=== PATIENT | female | born 1955 | race Caucasian/White ===

== ENCOUNTER → 2024-09-06 08:54 | Outpatient (REF) | payer OTHER, SELFPAY | LOC: HWWDC 08:54 | PROVIDERS: ATTENDING PHYSICIAN Student in an Organized Health Care Education/Training Program | DX: Z12.31 Encounter for screening mammogram for malignant neoplasm of breast (principal) | CPT/HCPCS: 77063; 77067 ==

== ENCOUNTER 2024-12-28 09:53 | Emergency (ER) | payer OTHER, SELFPAY ==
[2024-12-28 10:02] VITALS: BP 138/91
[2024-12-28 10:35] LABS: COVID-19 Antigen Negative (Negative)
[2024-12-28 10:46] VITALS: BP 133/94; BMI 22.8
--- NOTE | 2024-12-28 10:46 | ED.GENMED ---
History of Present Illness
General
Chief Complaint: Breathing Problem
Source: patient
Exam Limitations: none
Time Seen by Provider: 12/28/24 10:35
History of Present Illness
History of Present Illness:
69-year-old female with history of asthma presents with onset of illness 5 days ago which included scratchy throat. Has progressed into a cough and increased work of breathing. She has been using her inhalers without relief. She was tested for
COVID and flu at her family doctor 2 days ago was negative. She started Zithromax yesterday and had her first dose yesterday without any relief. She notes an audible wheeze she denies any leg swelling. No chest pain or shortness of breath. No
other complaints.
Past History
Past History
ED Past Medical History: Asthma
ED Past Surgical History: Cardiac (Correction of PDA via left thoracotomy) and Orthopedic (right A.C. joint repair)
Social History
Tobacco: Non-smoker
Personal:
Employment: Employed
Phy Exam
Physical Exam
Physical Exam:
General: Well-appearing female with increased work of breathing
HEENT: Normocephalic atraumatic posterior pharynx patent
Heart: Regular rate and rhythm
Lungs: Diffuse inspiratory and expiratory wheeze bilaterally no obvious rales
Abdomen is soft nontender nondistended
Extremities: No cyanosis or edema
Skin: Warm, no rash or lesion
Scores
Heart Failure Risk
Heart Failure Risk Score: Not Applicable
Course
Orders/Labs/Results
Orders:
Orders
12/28/24 10:08
COVID-19 Antigen Urgent
Source: Nasal Swab
Influenza A+B Rapid Molecular Urgent
OVI Source: Nasal Swab
Specimen Description:
12/28/24 10:44
Dexamethasone Sod Phosphate [Decadron] 10 mg IV NOW STA
Ipratropium/Albuterol Sulfate [Duoneb] 3 ml INH R NOW STA
CR Chest - 2 Views Urgent
Comment:
Reason For Exam: cough, sob
12/28/24 10:48
Complete Blood Count/With Diff Urgent
Comprehensive Metabolic Panel Urgent
12/28/24 12:23
Ipratropium/Albuterol Sulfate [Duoneb] 3 ml INH R NOW STA
Abnormal Lab Results
12/28/24
10:48
MCH 31.4 H pg
(27.0-31.0)
MCHC 31.8 L g/dL
(33.0-37.0)
Absolute Lymphs (auto) 0.8 L 10^3/uL
(1.2-3.4)
Immature Gran % 0.6 H %
(0-0.5)
Lymphocytes % 16.4 L %
(20.5-51.1)
Monocytes % 10.6 H %
(1.7-9.3)
Glucose 106 H mg/dl
(70-99)
ALT 36 H U/L
(0-35)
12/28/24 10:48
12/28/24 10:48
Vital Signs
Initial and Last Documented VS:
Initial Vital Signs
Temp Pulse Resp BP Pulse Ox
98.5 F 104 16 138/91 97
12/28/24 10:02 12/28/24 10:02 12/28/24 10:02 12/28/24 10:02 12/28/24 10:02
Last Documented Vital Signs
Temp Pulse Resp BP Pulse Ox
98.5 F 97 26 140/82 94
12/28/24 10:46 12/28/24 10:46 12/28/24 10:46 12/28/24 11:00 12/28/24 11:15
MDM/Problems Addressed
Differential Diagnosis Includes:
Increased work of breathing. Consider asthma exacerbation versus bronchitis versus pneumonia. She does not appear volume overloaded to suggest CHF. Chest x-ray pending. DuoNeb ordered Decadron ordered.
*Critical Care Note
Total Time (30-74mins, 75-104mins- exclusive of procedures): Not Applicable
Update Note
Update Note:
Chest x-ray negative. Patient feeling much better symptomatically after DuoNeb treatment x 2. Still with subtle wheeze. Suspect acute bronchitis. She has inhalers to use at home. She was started on Zithromax already. Will add prednisone to
take over the next 5 days. Return precautions were given
ED Attending Note
-
Portions of this chart may have been created with voice recognition software.� Occasional wrong word or��sound alike� substitutions may have occurred due to the inherent limitations of voice recognition software.
Discharge Plan
Departure
Patient Disposition: Home (Routine Discharge)
Date of Disposition: 12/28/24
Time of Disposition: 12:57
Patient with high blood pressure during this ER visit?: No
Discharge Problem:
Acute bronchitis
Instructions: Acute Bronchitis, Adult (DC)
Prescriptions:
New
prednisone 20 mg tablet
40 mg PO DAILY 5 Days Qty: 10 0RF
No Action
fluticasone propion-salmeterol [Advair Diskus] 1 DISK blister with device
1 puff PO DAILY
pediatric multivit 22-D3-vit K [Chewable Multivit-A,B,D,E,K,Zn] 1 EACH tablet,chewable
1 ea PO DAILY
Patient Comments:
over 50 y.o. [employer]
Referrals:
Kimberly Campbell MD [Family Provider] -
Activity Restrictions/Additional Instructions:
Continue using your rescue inhaler as needed. Take steroid as directed starting tomorrow and finish Zithromax. Return if worse otherwise
Interventions
Interventions:
*Risk Screen - Suicide Last Done: 12/28/24 10:46
*General Assessment Last Done: 12/28/24 10:46
*Neglect/Abuse Screening Last Done: 12/28/24 10:46
*ED- Fall Risk Assessment Last Done: 12/28/24 10:46
*ED COVID-19 Vaccine History Last Done: 12/28/24 10:46
ED- Cardiac Assessment Last Done: 12/28/24 10:46
ED- Pulmonary Assessment Last Done: 12/28/24 10:46
Discharge Date and Time
Print Language: [place] CITIZEN
[2024-12-28] MEDS: DECADRON 10 MG IV (10:50)
[2024-12-28] MEDS: DUONEB 3 ML INH ×2 (10:51→12:26)
[2024-12-28 11:00] VITALS: BP 140/82
[2024-12-28 11:04] LABS: % Basophils 0.8 % (0-2); % Eosinophils 1.2 % (0-6); % Immature Granulocytes 0.6 % (0-0.5); % Lymphocytes 16.4 % (20.5-51.1); % Monocytes 10.6 % (1.7-9.3); % Neutrophils 70.4 % (42.2-75.2); Absolute Eosinophils 0.1 10^3/uL (0-0.7); Absolute Lymphocytes 0.8 10^3/uL (1.2-3.4); Absolute Monocytes 0.5 10^3/uL (0.1-0.6); Absolute Neutrophils 3.5 10^3/uL (1.4-6.5); Hematocrit 46.2 % (37.0-47.0); Hemoglobin 14.7 g/dL (12.0-16.0); Mean Corp Hgb Conc. 31.8 g/dL (33.0-37.0); Mean Corpuscular Hgb 31.4 pg (27.0-31.0); Mean Corpuscular Volume 98.7 fL (81.0-99.0); Mean Platelet Volume 8.9 fL (7.4-10.4); Nucleated Red Blood Cells % 0 %; Platelet Count 234 10^3/uL (130-400); Red Blood Cell Count 4.68 10^6/uL (4.20-5.40)
[2024-12-28 11:23] LABS: ALT (SGPT) 36 U/L (0-35); AST (SGOT) 31 U/L (14-36); Albumin 4.3 g/dl (3.5-5.0); Alkaline Phosphatase 79 U/L (38-126); Blood Urea Nitrogen 9 mg/dl (7-17); Calcium 9.6 mg/dl (8.4-10.2); Carbon Dioxide 30 mmol/L (22-30); Chloride 100 mmol/L (98-107); Glucose 106 mg/dl (70-99); Potassium 4.4 mmol/L (3.5-5.1); Sodium 136 mmol/L (135-145); Total Bilirubin 0.6 mg/dl (0.2-1.3); Total Protein 7.2 g/dl (6.3-8.2); eGFR > 60.00
[2024-12-28 11:34] VITALS: BP 130/76
[2024-12-28 12:00] VITALS: BP 118/73
--- NOTE | 2024-12-28 12:19 | EDRN ---
the pts Sp02 dipped to 88% on RA, this RN notified the provider Barak KRAMER and this RN and provider entered the pts room, the pt was sleeping and woke up, Sp02 remained 88% for a few minutes and with chest PT and deep breaths the pts Sp02
came up to 95% on RA
[2024-12-28 13:00] VITALS: BP 118/75
== END 2024-12-28 13:15 | disposition home or self-care (01) ==
LOC: EMR 09:53
PROVIDERS: Emergency Medicine; Physician Assistant; EMERGENCY PHYSICIAN Emergency Medicine; FAMILY PHYSICIAN Student in an Organized Health Care Education/Training Program
DX: J20.9 Acute bronchitis, unspecified (principal); J45.909 Unspecified asthma, uncomplicated
CPT/HCPCS: 99284; 96374; 71046; 80053; 85025; 87502; 87811

== ENCOUNTER → 2025-01-06 12:52 | Outpatient (REF) | payer OTHER, SELFPAY | LOC: WDC 12:52 | PROVIDERS: ATTENDING PHYSICIAN Student in an Organized Health Care Education/Training Program | DX: R92.30 Dense breasts, unspecified (principal) | CPT/HCPCS: 76641 ==

== ENCOUNTER → 2025-01-26 11:05 | Outpatient (REF) | payer OTHER, SELFPAY | LOC: HWRAD 11:05 | PROVIDERS: ATTENDING PHYSICIAN Student in an Organized Health Care Education/Training Program | DX: M81.0 Age-related osteoporosis without current pathological fracture (principal) | CPT/HCPCS: 77080 ==

== ENCOUNTER → 2025-08-09 09:48 | Outpatient (REF) | payer OTHER, SELFPAY | LOC: WDC 09:48 | PROVIDERS: ATTENDING PHYSICIAN Student in an Organized Health Care Education/Training Program | DX: N64.4 Mastodynia (principal) | CPT/HCPCS: 76642; 77062; 77066 ==